=== PATIENT | female | born 1995 | race Caucasian/White ===

== ENCOUNTER 2018-04-11 13:17 | Emergency (ER) | payer MEDICAID, OTHER | END 2018-04-11 16:24 | disposition home or self-care (01) | LOC: FTE 13:17 | DX: S93.402A Sprain of unspecified ligament of left ankle, initial encounter (principal); S50.311A Abrasion of right elbow, initial encounter; S90.512A Abrasion, left ankle, initial encounter; S80.211A Abrasion, right knee, initial encounter; V00.831A Fall from motorized mobility scooter, initial encounter | CPT/HCPCS: 73610; 73630-LT; 99283-25 ==